=== PATIENT | male | born 1945 | race Caucasian/White ===

== ENCOUNTER 2016-11-20 14:28 | Day surgery (SDC) | payer MEDICARE, BC ==
--- NOTE | ~2016-11-20 | OP ---
Record Of Operation [facility] [address] [place]. [address] NAME: CIPRIANO WADSWORTH : 41 [place] [facility] [place] [id number] AGE: 71 ADM/REG DATE : 11/20/16 MR#: [id number] REPORT SERV DATE: 11/20/16 DICTATED BY: SAIRA DUQUE DATE: 11/20/16 REPORT STATUS : Draft TRANSCRIBED BY: MODL DATE: 11/20/16 DATE OF PROCEDURE: 11/20/2016 PREOPERATIVE DIAGNOSIS: Left scrotal mass. POSTOPERATIVE DIAGNOSIS: Left scrotal mass. PROCEDURE PERFORMED: Left scrotal exploration, excision of extratesticular mass, epididymectomy, and orchiopexy. SURGEON: Saira Duque M.D. ANESTHESIA: General. ESTIMATED BLOOD LOSS: 10 mL. INDICATIONS: This is a 71-year-old white male, recently presenting with a solid left maninder- scrotal mass. This appeared to be separate from the testicle and may have been arising from the epididymis. We are planning scrotal exploration and excision. Risks of infection, bleeding, failure, etc. were reviewed. PROCEDURE IN DETAIL: The patient was taken to the operating room and underwent a general anesthetic. He was placed in a supine position on the table, and his external genitalia were sterilely prepped and draped. A vertical left maninder-scrotal incision was made with a 15 blade knife. The Bovie device was used to carry the incision down until the tunica vaginalis was identified and this was incised anteriorly and opened, there was very little hydrocele fluid. The testicle and scrotal contents were delivered onto the operative field. There was a firm mass which was completely separate from the testicle overlying the distal cord structures. It was hard to tell whether this was affixed to the epididymis or not. A careful combination of sharp and blunt dissection was used to free the entire epididymis starting with the tail and also free the mass up completely. It turned out that the mass was not connected to the epididymis, and the mass was excised, and sent to pathology. 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 We went ahead and excised the remainder of the epididymis, as well as a portion of the convoluted vas and clamped the vas off and tied off superiorly. Hemostasis was obtained with electrocautery and there was really very little bleeding. The testicle itself was already somewhat small and soft. An appendix testicle and an appendix epididymis were excised. Following removal of the mass and assurance of hemostasis, the wound and contents were irrigated. The normal-looking tunic vaginalis was everted posterior to the testicle and the edges were approximated there using a running 3-0 Vicryl suture. The testicle was then placed back into the left hemiscrotum in its normal anatomic lie, and the tunic albuginea of the testicle was pexed to the dartos in three places. The wound was then closed in two layers using a running 3-0 Vicryl on the dartos and a running 3-0 chromic on the skin. A sterile Neosporin, fluff gauze, and scrotal support dressing was applied. A Oglesby catheter was placed to gravity drainage as well. The patient tolerated the procedure very well and was taken to recovery in stable condition. Record Of Operation [address] [address] NAME: CIPRIANO WADSWORTH : 41 [place] [facility] [place] [id number] AGE: 71 ADM/REG DATE : 11/20/16 MR#: [id number] REPORT SERV DATE: 11/20/16 DICTATED BY: SAIRA DUQUE DATE: 11/20/16 REPORT STATUS : Draft TRANSCRIBED BY: YARELIS DATE: 11/20/16 ANJEL/YARELIS Saira Duque M.D. / [id number] CC: Debbie Jimenez M.D.
[~2016-11-20 14:28] MED LIST: ASAB PO; FISH-EPA1000 MG PO; FLOMAX4 PO; MULTIVIT/MIN PO; NORV10 PO; PREVALITE4 G1 PO; PRILO PO; TOPXL100 PO; [UNRECOGNIZED DRUG - OTHER]
== END 2016-11-20 20:36 | disposition home or self-care (01) ==
LOC: SDC 14:28
PROVIDERS: Urology
PROC: 0VBB0ZX Excision of Left Testis, Open Approach, Diagnostic (ICD-10-PCS; 2016-11-20)
PROC: 0VTK0ZZ Resection of Left Epididymis, Open Approach (ICD-10-PCS; principal; 2016-11-20 16:00)
PROC: 0VSB0ZZ Reposition Left Testis, Open Approach (ICD-10-PCS; 2016-11-20 16:00)
DX: D17.72 Benign lipomatous neoplasm of other genitourinary organ (principal); I10 Essential (primary) hypertension; K21.9 Gastro-esophageal reflux disease without esophagitis; Z79.899 Other long term (current) drug therapy; Z98.41 Cataract extraction status, right eye; Z98.42 Cataract extraction status, left eye; Z98.890 Other specified postprocedural states
CPT/HCPCS: 71020; 80048; 85025; 85610; 85730; 88305; 88307; 88331; 88341; 88342; 93005; A9270-GY; J0690; J2250; J2405; J3010